=== PATIENT | female | born 1970 | race Caucasian/White ===

== ENCOUNTER 2016-11-12 12:31 | Inpatient (IN) | payer MEDICARE ==
[2016-11-12 14:31] LABS: HEMOGLOBIN 16.4 gm/dl (12.3-15.3); RED BLOOD COUNT 5.32 M/UL (4.00-5.10); WHITE BLOOD COUNT 16.2 K/UL (4.5-11.0)
[2016-11-12 14:52] LABS: BUN/CREATININE RATIO 14 (0-10)
[2016-11-12] MEDS ORDERED: ZESTRIL5 MG PO (20:14)
[2016-11-12] MEDS ORDERED: METFORMIN HCL1000 M1 PO (20:15)
[2016-11-13 06:59] LABS: BUN/CREATININE RATIO 20 (0-10)
[2016-11-13 16:44] LABS: HEMOGLOBIN 15.3 gm/dl (12.3-15.3); RED BLOOD COUNT 5.07 M/UL (4.00-5.10); WHITE BLOOD COUNT 12.5 K/UL (4.5-11.0)
[2016-11-13] MEDS ORDERED: ASPIR 8181 MG PO (19:13)
[2016-11-13] MEDS ORDERED: LIPITOR TAB 2020 MG PO (19:13)
[2016-11-13] MEDS ORDERED: TOPROL XL 25 MG25 MG PO (19:14)
[2016-11-13] MEDS ORDERED: HABITROL 14 MG P1 EA TD (19:15)
[2016-11-13] MEDS ORDERED: GLUCOTROL XL 5 M5 MG PO (19:16)
[2016-11-13] MEDS ORDERED: TYLENOL 325MG325 MG PO (19:16)
[2016-11-13] MEDS ORDERED: JANUVIA50 MG PO (19:17)
[2016-11-13] MEDS ORDERED: LOPRESSOR 25 MG25 MG PO (19:26)
== END 2016-11-13 20:20 | disposition home or self-care (01) | DRG 282 ==
LOC: ER1 12:31 → ZEROF 15:30 → PROG CARE 20:03
PROVIDERS: Emergency Medicine; ADMIT Internal Medicine Infectious Disease
PROC: 4A023N7 Measurement of Cardiac Sampling and Pressure, Left Heart, Percutaneous Approach (ICD-10-PCS; principal; 2016-11-13)
PROC: B2111ZZ Fluoroscopy of Multiple Coronary Arteries using Low Osmolar Contrast (ICD-10-PCS; 2016-11-13)
DX: I21.4 Non-ST elevation (NSTEMI) myocardial infarction (principal); I25.10 Atherosclerotic heart disease of native coronary artery without angina pectoris; E11.65 Type 2 diabetes mellitus with hyperglycemia; I10 Essential (primary) hypertension; E78.5 Hyperlipidemia, unspecified; D75.1 Secondary polycythemia; R55 Syncope and collapse; R00.2 Palpitations; D72.829 Elevated white blood cell count, unspecified; E66.9 Obesity, unspecified; F41.9 Anxiety disorder, unspecified; F17.210 Nicotine dependence, cigarettes, uncomplicated; Z91.14 Patient's other noncompliance with medication regimen; Z91.11 Patient's noncompliance with dietary regimen; Z68.33 Body mass index [BMI] 33.0-33.9, adult; Z79.84 Long term (current) use of oral hypoglycemic drugs; Z79.899 Other long term (current) drug therapy; Z88.5 Allergy status to narcotic agent; Z90.49 Acquired absence of other specified parts of digestive tract; Z98.890 Other specified postprocedural states; Z82.49 Family history of ischemic heart disease and other diseases of the circulatory system; Z80.9 Family history of malignant neoplasm, unspecified
CPT/HCPCS: ECHO; 36415; 70450; 71010; 80048; 80053; 80061; 81001; 82550; 82553; 82962; 83036; 84439; 84443; 84484; 85025; 85379; 85610; 85730; 93005; 93306; 93880; 96360; 96361; 99291; C1769; C1887; G0378; J0461; J0583; J1644; J2250; J3010; J7030; Q9963